=== PATIENT | male | born 1990 | race Caucasian/White ===

== ENCOUNTER 2017-08-24 16:30 | Emergency (ER) | payer OTHER ==
[~2017-08-24] VITALS: Ht 185.4 cm; Wt 84.1 kg
[2017-08-24 16:32] VITALS: BP 120/76; PULSE 76; RESP 16; TEMP 98; O2SAT 96
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
[2017-08-24] MEDS ORDERED: KETOROLAC TROMETHAMINE 60 MG/2 ML (IM) VIAL IM ONE (18:15)
== END 2017-08-24 18:28 | disposition home or self-care (01) ==
LOC: NEPK 16:30
DX: S93.401A Sprain of unspecified ligament of right ankle, initial encounter (principal); V19.9XXA Pedal cyclist (driver) (passenger) injured in unspecified traffic accident, initial encounter; Y93.55 Activity, bike riding
CPT/HCPCS: 73590; 73610; 96372; 99284; E0113; J1885; L1906